=== PATIENT | female | born 1975 | race Caucasian/White ===

== ENCOUNTER 2016-12-04 16:23 | Emergency (ER) | payer BC ==
[~2016-12-04] VITALS: Ht 161.3 cm; Wt 115.0 kg
[2016-12-04] MEDS ORDERED: KETOROLAC TROMETHAMINE 30 MG/ML VIAL IV STA (16:27)
[2016-12-04] MEDS ORDERED: SODIUM CHLORIDE 0.9% 1000ML 1,000 ML IV STA (16:27)
[2016-12-04 16:29] VITALS: TEMP 36.9; O2SAT 96; Ht 161.3 cm; Wt 115.0 kg
--- NOTE | 2016-12-04 16:38 | EMERGENCY ROOM VISIT NOTE ---
History Report prepared by Melva: Josh Almanza Under the Supervision of: Dr. Klever Salas D.O. First contact with patient: 16:20 Chief Complaint: CHEST PAIN Stated Complaint: CHEST PAIN History of Present Illness The patient is a 41 year old female who presents to the Emergency Room via EMS with complaints of persistent chest pain that started prior to arrival today. 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 She says that the pain radiated to her back, and breathing worsened the pain. She is short of breath. The patient was lightheaded, and she notes that she had a dry taste in her mouth. The patient was given 324 mg Aspirin in route to the hospital, per EMS. The patient states that the aspirin did not lessen her pain. The patient says that nothing else worsens the pain other than breathing. She says that she has had chest pains before, but was told that it was due to anxiety. The last time she had chest pain was 2 years ago. The patient takes Celexa and Topamax daily. She had a hysterectomy due to her periods. She does not drink alcohol or use tobacco products. Her medical problems include herniated discs and irritable bowel. She has not been sick recently. She still has her gallbladder. Source of History: patient, EMS Onset: Prior to arrival today Position: chest Timing: other (persistent) Modifying Factors (Worsening): breathing Associated Symptoms: + SOB, + back pain Note: Associated symptoms: Lightheadedness, dry taste in mouth. Review of Systems See HPI for pertinent positives & negatives. A total of 10 systems reviewed and were otherwise negative. Past Medical & Surgical Medical Problems: (1) Anxiety (2) Irritable bowel Family History Heart disease Social History Smoking Status: Never Smoker Smokeless Tobacco Use: No Alcohol Use: none Drug Use: none Current/Historical Medications Scheduled Citalopram Hydrobromide (Celexa), 40 MG PO DAILY Omeprazole (Prilosec), 20 MG PO DAILY Topiramate (Topamax), Unknown Dose PO DAILY Allergies Uncoded Allergies: ADHESIVE (Allergy, Mild, ERRYTHEMA, 12/04/16) Physical Exam Vital Signs Date Time Temp Pulse Resp B/P Pulse Ox O2 Delivery O2 Flow Rate FiO2 12/04/16 19:52 62 20 125/81 93 4/26/17 18:15 76 8 115/64 96 12/04/16 16:37 88 12/04/16 16:29 36.9 79 20 113/82 96 Room Air 12/04/16 16:29 96 Room Air 12/04/16 16:29 96 Room Air 12/04/16 16:29 96 Room Air Physical Exam GENERAL: Patient is awake, alert, mildly anxious appearing and uncomfortable. EYES: The conjunctivae are clear. The pupils are round and reactive. EARS, NOSE, MOUTH AND THROAT: The nose is without any evidence of any deformity. Mucous membranes are moist tongue is midline NECK: The neck is nontender and supple. RESPIRATORY: Normal respiratory effort is noted there is no evidence of wheezing rhonchi or rales CARDIOVASCULAR: Regular rate and rhythm noted there no murmurs rubs or gallops normal S1 normal S2 GASTROINTESTINAL: The abdomen is soft. Bowel sounds are present in all quadrants. Abdomen is nontender MUSCULOSKELETAL/EXTREMITIES: There is no evidence of gross deformity full range of motion is noted in the hips and shoulders SKIN: There is no obvious evidence of any rash. There are no petechiae, pallor or cyanosis noted. NEUROLOGIC: Patient is awake alert and oriented x3. Medical Decision & Procedures ER Provider Diagnostic Interpretation: Radiology results as stated below per my review and radiologist interpretation: CHEST ONE VIEW PORTABLE CLINICAL HISTORY: Chest pain. COMPARISON STUDY: No previous studies for comparison. FINDINGS: Lung volumes are mildly diminished. There is no pneumothorax or pleural effusion. Cardiac size is normal. Mediastinal contours are normal. There is no evidence of pulmonary edema. IMPRESSION: No acute cardiopulmonary findings. Electronically signed by: Lewis Reese M.D. 12/04/2016 5:09 PM Dictated Date/Time: 12/04/2016 5:09 PM CHEST CTA for PULMONARY ARTERIES CT DOSE: 574.13 mGy.cm HISTORY: TECHNIQUE: Multiaxial CT images of the chest were performed following the intravenous administration of contrast to evaluate the pulmonary arteries. Maximal intensity projection images were also obtained. COMPARISON STUDY: None. FINDINGS: There is a normal caliber thoracic aorta with no evidence for dissection. There is no evidence for pulmonary embolus. No pleural effusions. No pneumothorax. The liver and spleen are unremarkable. No mediastinal or hilar lymphadenopathy. The central airways are patent. The lungs are essentially clear. IMPRESSION: No evidence for pulmonary embolus. Electronically signed by: Idris Blum M.D. 12/04/2016 7:03 PM Dictated Date/Time: 12/04/2016 6:57 PM Laboratory Results 12/04/16 16:55 Red Blood Count 4.47, Mean Corpuscular Volume 90.4, Mean Corpuscular Hemoglobin 29.8, Mean Corpuscular Hemoglobin Concent 32.9, Mean Platelet Volume 9.4, Neutrophils (%) (Auto) 63.9, Lymphocytes (%) (Auto) 28.5, Monocytes (%) (Auto) 6.4, Eosinophils (%) (Auto) 0.9, Basophils (%) (Auto) 0.2, Neutrophils # (Auto) 5.39, Lymphocytes # (Auto) 2.41, Monocytes # (Auto) 0.54, Eosinophils # (Auto) 0.08, Basophils # (Auto) 0.02 12/04/16 16:55 12/04/16 17:29 Test 12/04/16 16:55 12/04/16 17:00 12/04/16 17:29 White Blood Count 8.45 K/uL (4.8-10.8) Red Blood Count 4.47 M/uL (4.2-5.4) Hemoglobin 13.3 g/dL (12.0-16.0) Hematocrit 40.4 % (37-47) Mean Corpuscular Volume 90.4 fL (80-100) Mean Corpuscular Hemoglobin 29.8 pg (25-34) Mean Corpuscular Hemoglobin Concent 32.9 g/dl (32-36) Platelet Count 302 K/uL (130-400) Mean Platelet Volume 9.4 fL (7.4-10.4) Neutrophils (%) (Auto) 63.9 % Lymphocytes (%) (Auto) 28.5 % Monocytes (%) (Auto) 6.4 % Eosinophils (%) (Auto) 0.9 % Basophils (%) (Auto) 0.2 % Neutrophils # (Auto) 5.39 K/uL (1.4-6.5) Lymphocytes # (Auto) 2.41 K/uL (1.2-3.4) Monocytes # (Auto) 0.54 K/uL (0.11-0.59) Eosinophils # (Auto) 0.08 K/uL (0-0.5) Basophils # (Auto) 0.02 K/uL (0-0.2) RDW Standard Deviation 44.6 fL (36.4-46.3) RDW Coefficient of Variation 13.4 % (11.5-14.5) Immature Granulocyte % (Auto) 0.1 % Immature Granulocyte # (Auto) 0.01 K/uL (0.00-0.02) Anion Gap 6.0 mmol/L (3-11) Est Creatinine Clear Calc Drug Dose 84.7 ml/min Estimated GFR () 73.2 Estimated GFR (Non- 63.2 BUN/Creatinine Ratio 8.7 (10-20) Calcium Level 8.6 mg/dl (8.5-10.1) Total Bilirubin 0.2 mg/dl (0.2-1) Alanine Aminotransferase (ALT/SGPT) 18 U/L (12-78) Alkaline Phosphatase 71 U/L (45-117) Troponin I < 0.015 ng/ml (0-0.045) Total Protein 7.1 gm/dl (6.4-8.2) Albumin 3.3 gm/dl (3.4-5.0) Lipase 249 U/L (73-393) Bedside D-Dimer > 450 ng/mlFEU (0-450) Prothrombin Time 10.0 SECONDS (9.0-12.0) Prothromb Time International Ratio 0.9 (0.9-1.1) Activated Partial Thromboplast Time 26.5 SECONDS (21.0-31.0) Partial Thromboplastin Ratio 1.0 Direct Bilirubin < 0.1 mg/dl (0-0.2) Aspartate Amino Transf (AST/SGOT) 7 U/L (15-37) Laboratory results per my review. Medications Administered Medications (Trade) Dose Ordered Sig/Mabel Route Start Time Stop Time Status Last Admin Dose Admin Sodium Chloride (Nss 1000ml) 1,000 ml @ 999 mls/hr Q1H1M STAT IV 12/04/16 16:27 12/04/16 17:27 DC 12/04/16 17:01 999 MLS/HR Ketorolac Tromethamine (Toradol Inj) 30 mg NOW STAT IV 12/04/16 16:27 12/04/16 16:29 DC 12/04/16 17:02 30 MG ECG Indication: chest pain Rate (beats per minute): 73 Rhythm: normal sinus Findings: no ectopy, other (no acute ST segment abnormalities) Comparison ECG Date: no prior available ED Course 162: The patient was evaluated in room A11A. A complete history and physical examination were performed. 1626: Ordered Toradol Inj 30 mg IV, NSS 1000 ml @ 999 mls/hr IV. 1752: I reevaluated the patient and let her know that we will put her in for a CT scan of her chest. 1913: Upon reevaluation, the patient is resting comfortably. I discussed the results and treatment plan with her. She verbalized agreement of the treatment plan. She will be discharged home. Medical Decision Prior records/ancillary studies reviewed. Triage Nursing notes reviewed. Additional history obtained from EMS. The patient's history was concerning for chest pain. Differential diagnosis: Etiologies such as cardiac ischemia, aortic dissection, pulmonary embolism, pneumonia, pneumothorax, musculoskeletal, infections, pericarditis, myocarditis , esophageal rupture, gastrointestinal, as well as others were entertained. The patient is a 41-year-old female who presented to the emergency department by ambulance for an evaluation of chest pain. The patient noted right-sided chest pain which appear to be pleuritic in nature. She had no abdominal tenderness. She did not appear to have any acute changes on EKG and her cardiac biomarkers were not elevated. She was found have an elevated d-dimer so a CT the chest was obtained but it did not reveal any signs of acute pulmonary embolism. I discussed the patient's laboratory and radiographic studies with her. She was treated with IV fluids and IV pain medication. At this time I feel her condition is likely secondary to pleurisy. She was encouraged to rest and avoid any strenuous activity. He was also encouraged to follow-up with her primary care physician for further evaluation but return to the emergency department immediately if symptoms change worsen or the need arises. Impression Primary Impression: Right-sided chest pain Additional Impression: Pleurisy Scribe Attestation The scribe's documentation has been prepared under my direction and personally reviewed by me in its entirety. I confirm that the note above accurately reflects all work, treatment, procedures, and medical decision making performed by me. Departure Information Dispostion Home / Self-Care Prescriptions Omeprazole (PRILOSEC) 20 Mg Cap 20 MG PO DAILY, #30 CAP Prov: JosueKlever, DO 12/04/16 Forms HOME CARE DOCUMENTATION FORM, IMPORTANT VISIT INFORMATION, Work Instructions Patient Instructions My [facility] Additional Instructions Call your family doctor in the morning to schedule a follow-up appointment. Rest and avoid any strenuous activity. Continue all medications as prescribed. Continue using Motrin and Tylenol as directed for pain. Problem Qualifiers
[2016-12-04 17:09] LABS: BASO % 0.2 %; BASO ABS # 0.02 K/uL (0-0.2); COMPLETE YES; EOS % 0.9 %; HEMATOCRIT 40.4 % (37-47); IG% 0.1 %; LYMPH % 28.5 %; LYMPH ABS # 2.41 K/uL (1.2-3.4); MEAN CELL VOLUME 90.4 fL (80-100); MEAN CORPUSCULAR HEMOGLOBIN 29.8 pg (25-34); MEAN CORPUSCULAR HGB CONC 32.9 g/dl (32-36); MEAN PLATELET VOLUME 9.4 fL (7.4-10.4); MONO % 6.4 %; NEUT % 63.9 %; PLATELET COUNT 302 K/uL (130-400); RED BLOOD COUNT 4.47 M/uL (4.2-5.4); WHITE BLOOD COUNT 8.45 K/uL (4.8-10.8)
--- NOTE | 2016-12-04 17:11 | DIAGNOSTIC IMAGING REPORT ---
CHEST ONE VIEW PORTABLE CLINICAL HISTORY: Chest pain. COMPARISON STUDY: No previous studies for comparison. FINDINGS: Lung volumes are mildly diminished. There is no pneumothorax or pleural effusion. Cardiac size is normal. Mediastinal contours are normal. There is no evidence of pulmonary edema. IMPRESSION: No acute cardiopulmonary findings. Electronically signed by: Lewis Reese M.D. 12/04/2016 5:09 PM Dictated Date/Time: 12/04/2016 5:09 PM
[2016-12-04] MEDS ORDERED: CITA40TA12 PO (17:23)
[2016-12-04] MEDS ORDERED: TOPI50TA16 PO (17:25)
[2016-12-04 17:41] LABS: ALKALINE PHOSPHATASE 71 U/L (45-117); ALT/SGPT 18 U/L (12-78); BLOOD UREA NITROGEN 10 mg/dl (7-18); BUN/CREATININE RATIO 8.7 (10-20); CALCIUM 8.6 mg/dl (8.5-10.1); CARBON DIOXIDE 24 mmol/L (21-32); CHLORIDE 109 mmol/L (98-107); GLUCOSE 136 mg/dl (70-99); SODIUM 139 mmol/L (136-145)
[2016-12-04 17:53] LABS: INR 0.9 (0.9-1.1)
[2016-12-04 17:54] LABS: POTASSIUM 3.4 mmol/L (3.5-5.1)
[2016-12-04 17:58] LABS: AST/SGOT 7 U/L (15-37)
[2016-12-04] MEDS ORDERED: OPTIRAY 320 IV PRN (18:00)
--- NOTE | 2016-12-04 19:05 | DIAGNOSTIC IMAGING REPORT ---
CHEST CTA for PULMONARY ARTERIES CT DOSE: 574.13 mGy.cm HISTORY: TECHNIQUE: Multiaxial CT images of the chest were performed following the intravenous administration of contrast to evaluate the pulmonary arteries. Maximal intensity projection images were also obtained. COMPARISON STUDY: None. FINDINGS: There is a normal caliber thoracic aorta with no evidence for dissection. There is no evidence for pulmonary embolus. No pleural effusions. No pneumothorax. The liver and spleen are unremarkable. No mediastinal or hilar lymphadenopathy. The central airways are patent. The lungs are essentially clear. IMPRESSION: No evidence for pulmonary embolus. Electronically signed by: Idris Blum M.D. 12/04/2016 7:03 PM Dictated Date/Time: 12/04/2016 6:57 PM
[2016-12-04] MEDS ORDERED: OMEP20CA9 PO (19:09)
[2016-12-04 19:52] VITALS: BP 125/81; PULSE 62; O2SAT 93
== END 2016-12-04 19:54 | disposition home or self-care (01) ==
LOC: C.EDA 16:27
DX: R07.9 Chest pain, unspecified (principal); R09.1 Pleurisy; F41.9 Anxiety disorder, unspecified; K58.9 Irritable bowel syndrome, unspecified; Z82.49 Family history of ischemic heart disease and other diseases of the circulatory system; Z79.899 Other long term (current) drug therapy